=== PATIENT | male | born 1985 | race Caucasian/White ===

== ENCOUNTER → 2021-07-06 | Outpatient (CLI) | payer BC ==
--- NOTE | 2021-07-06 12:31 | CONS ---
CONSULTATION DATE OF SERVICE: 07/06/2021 This 35-year-old gentleman has [facility]. HISTORY OF PRESENT ILLNESS/SLEEP-WAKE EVALUATION: The patient has had difficulties initiating sleep for a long period of time. Previously he was tried on different medications, including Belsomra, and even with this treatment he still had some problems with falling asleep. Currently he has even more problems because the patient now does instrument mechanic work. His sleep schedule 7 days a week for 2 weeks is from 11 a.m. 5 p.m. On other days he goes to bed at night between 10 p.m. and 3 a.m. and sleeps until 7 or 8 a.m. He has difficulties falling asleep, as already mentioned above, although no TV in bedroom. He usually sleeps on the side position and still wakes up from sleep several times. No history of hypnagogic hallucinations, sleep paralysis or cataplexy. During the day, the patient feels tiredness and sleepiness but does not take any naps; possibly he would not be able to fall asleep for a nap, according to him. He does have problems with memory, concentration and sexual dysfunction, and worries about his sleep. The patient had a home sleep apnea test several months ago in another institution. According to him, he practically did not sleep during the test and results of the test were borderline, according to the patient. PAST MEDICAL HISTORY: Positive for seasonal allergies, sinus problems. PAST SURGICAL HISTORY: None. MEDICATIONS: Propecia for hair loss. SOCIAL HISTORY: Negative for smoking. Alcohol consumption occasional. FAMILY HISTORY: Positive for heart problems, hyperlipidemia, cancer, insomnia. REVIEW OF SYSTEMS: Difficulty initiating sleep, multiple awakenings from sleep. Occasional snoring. No fevers. No double vision. No recent chest pain. No shortness of breath. No abdominal pain. No bleeding episodes. No blood in the urine. No seizure episodes. PHYSICAL EXAMINATION: GENERAL: Pleasant gentleman without distress. VITAL SIGNS: BP 121/67, HR 65, RR 12, height 5 feet 10-3/4 inches, weight 148.2 pounds, body mass index 23.6, temperature 97.3, oxygen saturation at room air 100%. HEENT: PERRLA, EOMI, evaluation of oropharynx showed tongue protrudes midline. Extremely low position of soft palate; Mallampati IV. NECK: Supple, no JVD. Thyroid is not palpable. Neck measures 15 inches in circumference. LUNGS: Clear to percussion and to auscultation. Good air exchange. No wheezing or rhonchi. HEART: S1, S2 regular. No murmurs, gallops, or rubs. ABDOMEN: Soft and nontender. Bowel sounds are present. No organomegaly appreciated. EXTREMITIES: No clubbing or cyanosis. WELDER PIPE MAKING: Awake, alert, and oriented X3. Cranial nerves 2 to 7 intact. There is no fasciculation or atrophy. noted. No focal deficits observed. IMPRESSION: 1. Snoring, multiple awakenings from sleep, extremely low position of soft palate, Mallampati IV; possible obstructive sleep apnea-hypopnea syndrome. 2. Psychophysiological insomnia. 3. Shift work sleep disorder. 4. Seasonal allergies. 5. History of sinus problems. PLAN: 1. Repeat home sleep apnea test for evaluation of patient's breathing during sleep. Previous test was done in another institution. During the previous sleep test the patient did not sleep well. 2. Psychological techniques for treatment of insomnia should include stimulus control, paradoxical intention, worry time, no watching the clock. 3. Dark glasses after instrument mechanic work before going to bed at home. 4. Preferably the same sleep schedule every night 7 days a week for 7-1/2 hours in bed. 5. Increase physical exercise. 6. No driving if feeling sleepiness. Thank you very much for referring this patient for consultation. Sincerely, Alli Bates MD, PhD, FAASM Diplomat of [place] [employer] Sleep Medicine Board of [place] [employer] [facility] [place] [facility] [place] MMODL / IJN: [id number] /
== END ==
LOC: SLEEP 10:27
PROVIDERS: ATTEND Internal Medicine
DX: F51.04 Psychophysiologic insomnia (principal); R06.83 Snoring; J34.89 Other specified disorders of nose and nasal sinuses; J30.2 Other seasonal allergic rhinitis
CPT/HCPCS: 99202